=== PATIENT | female | born 1945 | race Caucasian/White ===

== ENCOUNTER 2018-05-18 12:36 | Inpatient (IN) | payer OTHER ==
[~2018-05-18] VITALS: Ht 157.5 cm; Wt 49.9 kg
[2018-05-18] MEDS ORDERED: TIROSINT100 MCG PO (13:04)
[2018-05-18] MEDS ORDERED: TOPROL XL50 M1 PO (13:05)
[2018-05-18] MEDS ORDERED: BONIVA150 MG PO (13:05)
[2018-05-18] MEDS ORDERED: LOTENSIN20 MG PO (13:05)
[2018-05-18] MEDS ORDERED: AZELASTINE HCL6 ML OP (13:06)
== END 2018-05-22 17:33 | disposition home or self-care (01) | DRG 69 ==
LOC: ER 12:36 → MEDI 05-19 03:09 → SEC-K 05-19 03:09 → MEDI 05-19 16:15
PROC: 4A12X4Z Monitoring of Cardiac Electrical Activity, External Approach (ICD-10-PCS; principal; 2018-05-19)
PROC: BW28ZZZ Computerized Tomography (CT Scan) of Head (ICD-10-PCS; 2018-05-19)
PROC: B246ZZZ Ultrasonography of Right and Left Heart (ICD-10-PCS; 2018-05-19)
PROC: B345ZZZ Ultrasonography of Bilateral Common Carotid Arteries (ICD-10-PCS; 2018-05-19)
PROC: B348ZZZ Ultrasonography of Bilateral Internal Carotid Arteries (ICD-10-PCS; 2018-05-19)
PROC: B030ZZZ Magnetic Resonance Imaging (MRI) of Brain (ICD-10-PCS; 2018-05-19)
DX: G45.8 Other transient cerebral ischemic attacks and related syndromes (principal); I16.0 Hypertensive urgency; I10 Essential (primary) hypertension; R07.89 Other chest pain; E03.8 Other specified hypothyroidism; M06.89 Other specified rheumatoid arthritis, multiple sites; R47.81 Slurred speech
CPT/HCPCS: 70551

== ENCOUNTER 2018-07-08 16:05 | Emergency (ER) | payer OTHER ==
[~2018-07-08] VITALS: Ht 157.5 cm; Wt 50.8 kg
[~2018-07-08 16:05] MED LIST: AZELASTINE HCL6 ML OP; BONIVA150 MG PO; LOTENSIN20 MG PO; TIROSINT100 MCG PO; TOPROL XL50 M1 PO
[2018-07-08] MEDS ORDERED: AMLODIPINE BESY10 MG (16:13)
[2018-07-08] MEDS ORDERED: PRINIVIL20 MG (16:14)
[2018-07-08] MEDS ORDERED: METOPROLOL SUCC50 MG (16:15)
[2018-07-08] MEDS ORDERED: SYMBICORT 16010.2 GM (16:15)
[2018-07-08] MEDS ORDERED: BONIVA150 MG (16:15)
== END 2018-07-09 08:36 | disposition home or self-care (01) ==
LOC: ER 16:05
DX: E87.1 Hypo-osmolality and hyponatremia (principal); G45.9 Transient cerebral ischemic attack, unspecified